=== PATIENT | female | born 1990 | race Caucasian/White ===

== ENCOUNTER → 2020-09-02 09:49 | Outpatient (CLI) | payer OTHER, SELFPAY ==
--- NOTE | ~2020-09-02 | US_ITS ---
EXAMINATION: US OB follow up EXAM DATE: 09/02/2020 10:29 INDICATION: Placenta previa, f/u anatomy . 2nd trimester. TECHNIQUE: Pelvic obstetrical transabdominal sonogram was performed by a technologist. There are mu ltiple grayscale and Doppler images available for interpretation. Correlation is made to outside imag ing ultrasound 08/02/2020. FINDINGS: There is a single fetus identified in breech presentation with a heart rate of 135 beats pe r minute. The placenta is located in the posterior position. There is no sonographic evidence of ret roplacental hemorrhage identified. There is subjectively expected amount of amniotic fluid. Placenta l margin to internal cervical os distance is 1.0 cm. BIOMETRIC DATA: Biparietal diameter (BPD): 6.0cm ----------------> 24 weeks 3 days. Head circumference (HC): 22.0 cm ----------------> 24 weeks 0 days. Abdominal circumference (AC): 19.4 cm ----------> 24 weeks 1 day. Femur length (FL): 4.7 cm --------------------------> 25 weeks 6 days. These measurements are concordant. HC/AC ratio is 1.13 (The 5th -- 95th percentile range is 1.04-1.22. Estimated weight is 733 g +/- 110 g. This is the 57th percentile when the currently reported c linical gestation age 24 weeks 3 days, clinical estimated date of delivery (KENNETH-OPE) 12/20 is used. Fe atul estimated gestational age based on measurements from this exam is 24 weeks 4 days, with an estima shereen date of delivery (KENNETH-AUA) 12/19. ANATOMIC SURVEY: The following anatomy is identified and is sonographically normal in appearance: Cerebral ventricles Cerebellum Cisterna magna CTL-spine Four-chamber heart Diaphragm Stomach Kidneys Bladder Three-vessel cord Cord insertion IMPRESSION: 1. Single fetus in breech presentation with heart rate 135 beats per minute. 2. Estimated weight of 733 grams, 57th percentile using the currently reported clinical gestat ion age of 24 weeks 3 days, KENNETH(OPE) 12/20. 3. Normal anatomic survey. 4. Low-lying placenta. Reviewed, dictated and finalized at location A. IMPRESSION: 1. Single fetus in breech presentation with heart rate 135 beats per minute. 2. Estimated weight of 733 grams, 57th percentile using the currently re ported clinical gestation age of 24 weeks 3 days, KENNETH(OPE) 12/20. 3. Normal anatomic survey. 4. Low-lying placenta.
== END ==
PROVIDERS: Visit Provider Obstetrics & Gynecology Gynecology
DX: Z36.2 Encounter for other antenatal screening follow-up (principal); O44.42 Low lying placenta NOS or without hemorrhage, second trimester; Z3A.24 24 weeks gestation of pregnancy
CPT/HCPCS: 76816

== ENCOUNTER 2020-10-25 09:09 | Emergency (ER) | payer OTHER, MEDICAID, SELFPAY ==
[2020-10-25] VITALS (17 sets, daily range): BP systolic 112–127; BP diastolic 72–90; PULSE 88–115; RESP 12–21; TEMP 36.6; O2SAT 94–99
--- NOTE | 2020-10-25 09:13 | ECG_ITS ---
Measurements Intervals [place] Rate: 104 P: 14 SC: 126 QRS: 26 QRSD: 84 T: 19 QT: 352 QTc: 464 Interpretive Statements SINUS TACHYCARDIA VENTRICULAR BIGEMINY AND VENTRICULAR PREMATURE COMPLEX LOW QRS VOLTAGE IN PRECORDIAL LEADS BORDERLINE T WAVE ABNORMALITY- ANT/INF LEADS BASELINE ARTIFACT- I, II, III ABNORMAL ECG Electronically Signed On 10-25-2020 10:02:41 [employer] by Wilberto Schmitz D.O.
--- NOTE | 2020-10-25 09:28 | ED.GENADULT ---
HPI - General Adult General Chief complaint: Arrhythmia/Palpitations Stated complaint: rapid heart rate Time Seen by Provider: 10/25/20 09:16 Source: patient Mode of arrival: ambulatory Limitations: no limitations History of Present Illness HPI narrative: Patient that is 32 weeks presents with chief complaint of feeling as if her heart is racing beginning yesterday at approximately 6 PM and lasted for 4 hours. Patient states she sat down and was told to call the after-hours hotline of her [employer] Dr. Shoemaker but did not receive a call back. She states the nurse on the phone to her her to drink water and rest. She reports that when she woke up this morning she began feeling her heart racing again. She reports feelings of mild nausea but denies shortness of breath, pain with inspiration, chest pain, vomiting, tightening of her abdomen or pain in her back, vaginal bleeding or vaginal discharge. Patient states she has still been feeling the fetus moving in her abdomen normally. Patient states that she called her [employer] OPERATOR's office this morning and was told to present to the emergency department. Patient states at this time she does not feel as if her heart is racing as fast as it have been. Patient states that she took her pulse last night and it did get as high as 140. Patient denies caffeine use or any other stimulant use. She denies smoking, drinking alcohol or using any recreational drugs. Patient states aside from her daily iron supplement and vitamin D supplements she does not take any other medications. Her only chronic medical disease is rheumatoid arthritis but she states she has been in remission for 2 years. Related Data Home Medications Medication Instructions Recorded Confirmed One-A-Day Women[facility] 1 10/25/20 Allergies Allergy/AdvReac Type Severity Reaction Status Date / Time No Known Allergies Allergy Verified 10/25/20 09:19 Review of Systems Review of Systems: Narrative: CONSTITUTIONAL: Denies fever, chills, or sweats. EYES: Denies visual changes, redness, or discharge. ENT: Denies rhinorrhea, congestion, sore throat, or otalgia. CARDIOVASCULAR: Reports tachycardia denies chest pain, palpitations, or edema. RESPIRATORY: Denies cough or dyspnea. GASTROINTESTINAL: Denies abdominal pain, nausea, vomiting, or diarrhea. GENITOURINARY: Denies dysuria or hematuria. SKIN: Denies rash or itching. MUSCULOSKELETAL: Denies back pain, joint pain, or myalgia. NEUROLOGIC: Denies headache, numbness, dizziness, or weakness. PSYCHIATRIC: Denies anxiety or depression. PMFSH Social History Social History Gender identity (if verbalized by the patient): Female Exam Narrative: Exam Narrative: GENERAL: Well-appearing, well-nourished, and in no acute distress. HEAD: Normocephalic, atraumatic. EYES: PERRLA and EOMI. NECK: Supple. No adenopathy or masses. CHEST: Clear to auscultation. No respiratory distress. No wheezes rales or rhonchi HEART: Tachycardic rate and regular rhythm. No murmur heard. Normal peripheral pulses. ABDOMEN: Soft, nontender, gravid abdomen, heart tones fluctuate between 138-152, normal active bowel sounds. EXTREMITIES: Normal range of motion. No edema. SKIN: Warm, dry, no rash. NEURO: No focal deficits. Alert and oriented x3. PSYCH: Normal mood and affect. Course Vital Signs Vital signs: Vital Signs Temperature 97.8 F 10/25/20 09:20 Pulse Rate 112 H 10/25/20 09:20 Respiratory Rate 17 10/25/20 09:20 Blood Pressure 127/79 10/25/20 09:20 Pulse Oximetry 97 10/25/20 09:20 Temperature 97.8 F 10/25/20 09:20 Pulse Rate 95 10/25/20 12:46 Respiratory Rate 16 10/25/20 12:46 Blood Pressure 117/77 10/25/20 12:46 Pulse Oximetry 96 10/25/20 12:46 Medical Decision Making MDM Narrative Medical decision making narrative: Consult with Dr. Aniket Vergara who is on-call for patient's [employer] Dr. Shoemaker. She states the patient can be discharged h
[2020-10-25 09:52] LABS: Basophils Percent Auto 0.2 % (0.2-1.2); Eosinophils Absolute Auto 0.1 K/mm3 (0-0.3); Eosinophils Percent Auto 0.6 % (0-4.4); Hematocrit 37.8 % (37.0-47.0); Immature Granulocyte Absolute 0.06 K/mm3 (0.00-0.031); Immature Granulocyte Percent A 0.6 % (0-0.5); Lymphocytes Percent Auto 16.7 % (18.3-44.2); Mean Corpuscular HGB Conc 34.4 g/dl (32-36); Mean Corpuscular Hemoglobin 32.4 pg (26-34); Mean Corpuscular Volume 94.3 fl (80-100); Monocytes Absolute Auto 0.6 K/mm3 (0.1-0.6); Monocytes Percent Auto 5.8 % (2.6-8.5); Neutrophils Absolute Auto 7.7 K/mm3 (1.3-6.7); Neutrophils Percent Auto 76.1 % (45.5-73.1); Platelet Count Result 235 k/mm3 (150-375); Red Blood Count 4.01 M/mm3 (4.2-5.4); Red Cell Distribution Width 12.7 % (11.5-14.5); White Blood Count 10.2 K/mm3 (4.5-10.0)
[2020-10-25 09:53] LABS: Add Urine Microscopic? NO; Appearance Urine Clear (Clear); Bilirubin Urine Negative (Negative); Blood Urine Negative (Negative); Color Urine Yellow (Yellow); Glucose Urine UA Negative (Negative); Ketones Urine Negative (Negative); Leukocyte Esterase Ur Negative LEU/UL (Negative); Nitrate Urine Negative (Negative); Protein Urine Negative (Negative); Specific Grav Ur 1.013 (1.001-1.035); Urobilinogen Urine Negative mg/dL (<2.0)
[2020-10-25 10:01] LABS: Alanine Aminotransferase 13 U/L (4-35); Albumin Level 4.1 g/dL (3.5-5.1); Alkaline Phosphatase 62 U/L (38-126); Anion Gap 9 mmol/L (8-16); Aspartate Amino Transferase 24 U/L (14-36); Bilirubin,Total 0.7 mg/dL (0.2-1.3); Blood Urea Nitrogen 7 mg/dL (7-17); Calcium 9.2 mg/dL (8.4-10.2); Carbon Dioxide 25 mmol/L (22-30); Chloride 103 mmol/L (98-107); Estimated CRCL calculation 147 ml/min; Estimated Glomerular Filt Rate > 60; Glucose 93 mg/dL (65-105); Potassium 3.9 mmol/L (3.4-5.0); Sodium 137 mmol/L (137-145)
[2020-10-25 10:02] LABS: INR 0.9; Prothrombin Time 12.7 Seconds (11.1-14.7)
[2020-10-25 10:03] LABS: Partial Thromboplastin Time 27.5 SECONDS (22.3-36.8)
[2020-10-25 10:07] LABS: Amphetamine Screen Urine Negative (Negative); Barbiturate Screen Urine Negative (Negative); Benzodiazepines Screen Urine Negative (Negative); Cannabinoid Screen Urine Negative (Negative); Cocaine Screen Urine Negative (Negative); Methadone Screen Urine Negative (Negative); Opiate Screen Urine Negative (Negative); Phencyclidine Screen Urine Negative (Negative)
[2020-10-25 10:12] LABS: Troponin I < 0.012 ng/mL (0.000-0.034)
[2020-10-25] MEDS: ONDANSETRON INJ 4 MG/2 ML VIAL IV PUSH (10:35)
[2020-10-25 11:48] LABS: Free T4 Free Thyroxine 0.71 ng/mL (0.78-2.19)
[2020-10-25 12:07] LABS: Thyroid Stimulating Hormone 0.888 uIU/mL (0.465-4.680)
== END 2020-10-25 13:10 | disposition home or self-care (01) ==
PROVIDERS: Physician Assistant; Emergency Provider Emergency Medicine
DX: O99.891 Other specified diseases and conditions complicating pregnancy (principal); R00.0 Tachycardia, unspecified; Z3A.32 32 weeks gestation of pregnancy
CPT/HCPCS: 36415; 80053; 80307; 81003; 84439; 84443; 84484; 85025; 85610; 85730; 93005; 96374; 99284; J2405

== ENCOUNTER 2020-12-13 11:19 | Outpatient (CLI) | payer OTHER, MEDICAID, SELFPAY ==
[2020-12-13 11:48] LABS: Hematocrit 33.8 % (37.0-47.0); Hemoglobin 11.7 g/dL (12.0-15.0); Mean Corpuscular HGB Conc 34.6 g/dl (32-36); Mean Corpuscular Hemoglobin 32.5 pg (26-34); Mean Corpuscular Volume 93.9 fl (80-100); Mean Platelet Volume 10.3 fl (7.4-10.4); Platelet Count Result 212 k/mm3 (150-375); Red Cell Distribution Width 12.5 % (11.5-14.5); White Blood Count 9.3 K/mm3 (4.5-10.0)
[2020-12-14 10:09] LABS: Rapid Plasma Reagin Non-Reactive (NonReactive)
== END 2020-12-13 11:20 | disposition home or self-care (01) ==
PROVIDERS: PCP Family Medicine; Visit Provider Obstetrics & Gynecology Gynecology
DX: Z01.818 Encounter for other preprocedural examination (principal)
CPT/HCPCS: 36415; 85027; 86592; 86850; 86900; 86901

== ENCOUNTER 2020-12-14 05:15 | Inpatient (IN) | payer OTHER, MEDICAID, SELFPAY ==
--- NOTE | 2020-11-13 14:01 | PC.NURSE ---
VERIFIED WITH OR SCHEDULE AND PATIENT--C/S ON 12/14/20 AT 0730 PATIENT GIVEN REQUISITION FOR LAB DRAW ON 12/13/20
[2020-12-14] VITALS (68 sets, daily range): BP systolic 81–111; BP diastolic 50–87; PULSE 64–149; RESP 12–20; TEMP 36.2–37.4; O2SAT 97–100; BMI 37.8
[2020-12-14] MEDS: LACTATED RINGERS 1,000 ML 125 ML IV CONT ×3 (05:57→08:18)
--- NOTE | 2020-12-14 06:28 | LDADM ---
This patient, Dougie Johnson, was admitted to Labor/Delivery/Recovery 120 on 12/14/20 at 05:15. Plans for labor, pain management and were discussed with patient. Patient/family oriented to hospital policies and general routines including ID bracelet, bed and alarms, visiting hours, pain management, procedures, bathroom and other care routines, personal items, smoking policy, room service/diet and guest tray routines, security routines, and visiting hours. Patient/Family are encouraged to report perceived risks to care and to ask questions if they do not understand what they are told or what they should do. See OBIX for further documentation.
--- NOTE | 2020-12-14 07:05 | WPDANESEPPF ---
Anes - Initial Pre Proc Eval Procedure: Operation Date: 12/14/20 07:30 Proposed Procedures p Repeat Section - Joanna Shoemaker MD Date/Time: 12/14/20 07:05 Surgeon: Joanna Shoemaker MD Pre Op Diagnosis: C/Section Patient Data Age: 30 Gender: F Height: 1.63 m Weight: 100 kg Last Vital Signs Pulse 97 12/14/20 06:36 BP 104/69 12/14/20 06:36 Allergies Allergy/AdvReac Type Severity Reaction Status Date / Time SURGICAL SCRUB Allergy Rash Uncoded 11/13/20 13:36 Home Medications Medication Instructions Recorded Confirmed Type Iron (ferrous sulfate) 18 mg PO DAILY 11/13/20 12/14/20 History ergocalciferol (vitamin D2) 1,250 mcg PO WEEKLY 11/13/20 12/14/20 History [Vitamin D2] ondansetron HCl [Zofran] 4 mg PO Q6H PRN 11/13/20 12/14/20 History [id number] fumarate-FA 1 tablet PO DAILY 12/14/20 12/14/20 History [] Patient hx anesthesia problems: none Family hx anesthesia problems: none PMFSH Past Medical History Medical History (Updated 12/14/20 @ 07:06 by Ashok De Leon MD) Chronic GERD Rheumatoid arthritis Family History Family History (Updated 11/13/20 @ 13:44 by Breanne Dunn RN) Sibling Anomaly of chromosome pair 22 Acute rheumatoid arthritis Father Hypertension Social History Social History Smoking status: Never smoker Substance use: never Gender identity (if verbalized by the patient): Female Spiritual care concerns: No Anes - Eval Final PreProcedure Day of Procedure 12/14/20 07:05 Patient weight: overweight Heart: regular rate and rhythm Lungs: clear to auscultation and normal air movement Airway: Mallampati scale class II Neurological: alert and oriented Last oral intake: >/= 8 hours ASA classification: II Emergent: no Anesthetic plan: proceed Anesthesia type and monitoring: regional spinal Informed Consent: The patient's anesthetic plan and its attendant risks and benefits were discussed with the patient/family/POA. Questions were solicited and answers provided to the satisfaction of the patient/family/POA.
--- NOTE | 2020-12-14 07:14 | WPDHPUPDATE1 ---
History and Physical Update Update Date/Time: 12/14/20 07:14 History and Physical has been reviewed, including an updated exam of the patient. There are NO changes in the patient's condition. Risks, benefits, and alternatives have been discussed and questions answered. Patient agrees to proceed with procedure.
--- NOTE | 2020-12-14 07:14 | PM.IMHP ---
H&P: HPI History of Present Illness Date/Time: 12/14/20 07:14 Chief Complaint: planned csection Narrative: Dougie Johnson is a 30 year old female at 39 wks her for repeat csection. During patient with tachycardia and bigeminy. Had holter monitor and ECHO that were otherwise normal. No meds needed. Following with cardiology. Patient also with recent knuckle fracture and required surgical repair. [facility] Past Medical History Medical History (Updated 12/14/20 @ 07:18 by Joanna Shoemaker MD) Chronic GERD Rheumatoid arthritis Surgical History Surgical History (Updated 12/14/20 @ 07:18 by Joanna Shoemaker MD) S/P S/P laparoscopic cholecystectomy S/P ventral herniorrhaphy Family History Family History (Updated 11/13/20 @ 13:44 by Breanne Dunn RN) Sibling Anomaly of chromosome pair 22 Acute rheumatoid arthritis Father Hypertension Social History Social History Smoking status: Never smoker Substance use: never Gender identity (if verbalized by the patient): Female Spiritual care concerns: No Meds Home Medications and Allergies Home Medications Medication Instructions Recorded Confirmed Type Iron (ferrous sulfate) 18 mg PO DAILY 11/13/20 12/14/20 History ergocalciferol (vitamin D2) 1,250 mcg PO WEEKLY 11/13/20 12/14/20 History [Vitamin D2] ondansetron HCl [Zofran] 4 mg PO Q6H PRN 11/13/20 12/14/20 History [id number] fumarate-FA 1 tablet PO DAILY 12/14/20 12/14/20 History [] Allergies Allergy/AdvReac Type Severity Reaction Status Date / Time SURGICAL SCRUB Allergy Rash Uncoded 11/13/20 13:36 Vital Signs Vital Signs - 24 hr 12/14/20 06:36 Pulse Rate 97 Blood Pressure 104/69 Exam Const: General: healthy appearing and alert Orientation/consciousness: patient oriented x3 Resp: Effort & Inspection: normal respiratory effort Auscultation: clear to auscultation bilaterally Cardio: Rate: regular rate Rhythm: regular rhythm GI: GI Palp: Yes Soft to palpation, No Tenderness to palpation present (GI), No Palpable mass present and Yes Other GI palpation findings present (gravid with fundal height 40) : External Female Exam: normal external appearance Speculum Exam - Vagina: normal appearance of the vagina and normal vaginal discharge Speculum Exam - Cervix: normal appearance of the cervix Bimanual exam- vagina & uterus: uterine size normal and consistency normal Bimanual Exam- Adnexa, other: normal adnexae and No adnexal tenderness Neuro: General: patient oriented x3 Assessment and Plan Assessment and plan (1) History of section, low transverse: Code(s): Z98.891 - History of uterine scar from previous surgery Status: Acute Assessment and Plan: declines trial of labor and plan to proceed with repeat csection (2) 39 weeks gestation of : Code(s): Z3A.39 - 39 weeks gestation of Status: Acute
[2020-12-14] MEDS: ceFAZolin 2 GM/D5W 50 ML 2 GM/50 ML BAG IVPB (07:19)
--- NOTE | 2020-12-14 08:16 | P.OP_ITS ---
Procedure Note - Detailed Date of procedure: 12/14/20 Pre-op diagnosis: C/Section IUP 39 wks Previous csection Post-op diagnosis: same Procedure performed: repeat LTCS Description of procedure: The patient was taken to the operating room and placed under spinal anesthesia in the dorsal supine position with a leftward tilt. She was prepped and draped in the usual sterile fashion. Once anesthesia was deemed adequate, a Pfannenstiel skin incision was made through the prior incision. The incision was carried down to the fascia which was nicked in the midline. Incision was extended laterally using Cancino scissors. Bovie cautery was used to obtain hemostasis in the subcutaneous tissues. The [facility] used to tent the fascia which was then dissected off anteriorly and posteriorly with sharp and blunt dissection. The peritoneum was entered during this process. The peritoneal incision is extended with blunt traction. The bladder blade is placed. The vesicouterine peritoneum was grasped with a Peon and entered with Metzenbaum. The incision is extended laterally. Bladder flap was created digitally. The lower uterine segment is incised in a transverse fashion with the scalpel. The incision is extended laterally using blunt traction. Membranes are ruptured and clear amniotic fluid is noted. The infant's head was brought up into the incision and delivered as the regulatory assistant applied fundal pressure. The infant was fully delivered the cord is detained gold and clamped and cut. The infant is handed to the waiting nursery nurse. The uterus is exteriorized, cleared of all clots and debris, and the edges are grasp anteriorly and posteriorly with ring forceps. The distal edge of the incision is noted to have very thin myometrium. The incision is closed using 0 Monocryl in a running locked fashion same suture was used for imbrication and 2 additional sutures were required for hemostasis. The cul-de-sac is irrigated, the uterus is returned to the abdomen, and the gutters are irrigated. The ct erine incision is again inspected. It is noted to be hemostatic. The fascia was closed using 0 Vicryl in a running fashion. Subcutaneous tissues are irrigated and noted to be hemostatic. Skin incision is closed with 4 O Vicryl in a subcuticular fashion. Dermaflex was placed over the incision. Sponge, instrument, and needle counts are correct per the OR staff. Anesthesia: spinal Surgeon: Joanna Shoemaker MD Estimated blood loss (mL): 480 Drains: Yes (le) Packing: No Pathology: none sent Complications: No immediate complications Condition: stable Disposition: floor Findings: female infant with 9/10 ; weight 7#5oz; nuchal cord x 1 delivered through; normal appearing tubes, ovaries, and uterus; adhesions from omentum to left mid fundus
--- NOTE | 2020-12-14 08:23 | PM.OBDSVD ---
DS: Admitting Diagnosis Admitting Diagnosis Admitting Diagnosis: IUP 39 wks Previous csection DS: Discharge Diagnosis Discharge Diagnosis (1) History of section, low transverse: Code(s): Z98.891 - History of uterine scar from previous surgery Status: Acute (2) 39 weeks gestation of : Code(s): Z3A.39 - 39 weeks gestation of Status: Acute OB - DS: Summary OB Procedures : Ultrasound OB Procedures Intrapartum: low cervical, transverse OB Procedures: : None Peripartum Data Delivery Method: Section Procedures: Procedures Operation Date: 12/14/20 07:30 <No data on this case meets the specified criteria> complications: none Status at Discharge Functional status at discharge: independent ambulation Overall status at discharge: patient is progressing back to baseline Time Spent with Patient Time attestation: Total time spent providing and/or coordinating discharge services: Discharge Plan Discharge Attending physician on discharge: Joanna Shoemaker Discharging Clinician: Aniket Vergara Anticipated Discharge Date/Time: 12/17/20 08:24 Patient Disposition: Home, Self-Care Activity: may shower, may drive after 2 weeks and pelvic rest Diet: regular Wound Care Instructions: incision open to air Discharge Instructions: Education: Mom and Baby Guide Given to: Mother Follow-Up: Call your delivering provider's office for an appointment to be seen in: 1 Week then 4-6 weeks for exam Mom and baby should come to the [facility] for the follow-up appointment. Appointment Date/Time: Friday, December 18, 2020 at 10:00 am What to expect at your follow-up visit: Blood Pressure Check Physical Assessment Call [phone] if you are unable to keep your appointment time. BREAST CARE: * Wear a snug supportive bra. * For engorgement discomfort: Breast Feeding: * Apply warm moist washcloths * Express milk as needed to relieve engorgement * Wear loose clothing * For sore nipples: * Identify correct latch-on * Apply warm moist washcloths before and after nursing * Air dry nipples after nursing * May apply Lansinoh cream to nipples ABDOMINAL INCISION: (if applicable) * Allow incision to air dry * Do NOT use lotions for powders on your incision * When showering, allow soap and water to run over the incision, but do not wash incision EPISIOTOMY/PERINEAL CARE: * Until bleeding stops, use your elbert bottle after urinating * Change your pad frequently throughout the day * No tub baths until seen by your physician - You may shower ACTIVITY: * Rest as much as possible. * Do not exercise or lift anything heavier than your baby (such as laundry or other children.) * Avoid stairs or driving as much as possible. * Do not put anything into the vagina. No douching, tampons, or sexual activity until seen by physician. NOTIFY PHYSICIAN IF YOU HAVE ANY QUESTIONS OR IF ANY OF THE FOLLOWING SYMPTOMS OCCUR: * If your incision becomes red, swollen, or more painful than what you have experienced in the hospital. * If your vaginal bleeding becomes foul smelling. * If your vaginal bleeding becomes more heavy than a period or if your bleeding changes from pink to bright red. However, you may pass an occasional walnut-sized clot once or twice for the first week . * If you experience a sharp, shooting pain in your calves. * If you discover a hard, reddened area on your breast or if you experience flu-like symptoms. DIET: * Eat regular, well-balanced meals. * Drink plenty of fluids daily. If , drink to thirst. Patient Instructions: (DC) Stand Alone Forms: General Discharge Information Follow-up/Referrals: Joanna Shoemaker MD [Physician] - 1 Week Discha
[2020-12-14] MEDS: OXYTOCIN 30 UNITS/NS 500 ML 30 UNITS/500 ML BAG 125 UNITS IV CONT (09:50)
[2020-12-14] MEDS: diphenhydrAMINE HCl INJ 50 MG/ML VIAL 12.5 MG IV PUSH (09:51)
--- NOTE | 2020-12-14 10:32 | PC.NURSE ---
Patient transferred to post room #283 via stretcher. Support person present. Oriented to unit, room, information board, rooming in, admission packet and security measures. Patient verbalizes understanding.
[2020-12-14] MEDS: DEXTROSE 5%/0.45% SOD CHL 1,000 ML 125 ML IV CONT (13:56)
[2020-12-14] MEDS: DOCUSATE SODIUM 100 MG CAPSULE PO (13:57)
[2020-12-14] MEDS: LANOLIN (LANSINOH) 7.5 GM CREAM 1 APPLIC TOPICAL (13:57)
--- NOTE | 2020-12-14 14:21 | PC.NURSE ---
1123 Breast feeding note; nurse at bedside to assist. Mother using a nipple shield, stating she had to with her first baby as well, and nursed with shield for 2-3 months. She reports a delay of breast feeding her first baby for about 24h, and then did have to supplement her breast feedings. Today, Mother shown how to correctly place nipple shield over her nipple. Several attempts required, but baby able to open her mouth to latch to feed. She demonstrated rhythmic sucking with maintained latch requiring a little stimulation to nurse more vigorously. Mother reported comfortable breast feeding. Mother had visible colostrum the nipple shield. Baby nursed eagerly, 20 minutes, then did additional 10 minutes on mother's R side in football position. Because mother's L hand is bandadged, football position seems to be a little easier for her. Pt's mother is present and helpful with feedings and baby care. Because of mother's hx of lower milk production, and use of nipple shield that will probably continue, pt will be set up with a breast pump to start some pumping later this evening. She is is agreement with this plan, and desires to make a good effort to breast feed this baby. Reviewed use of feeding log to monitor feedings, and output. Pt and her mother very attentive and voiced understanding of all information shared.
--- NOTE | 2020-12-14 15:11 | PC.NURSE ---
1445 Breast feeding note; mother set up with breast pump; reviewed set-up, Initiation cycle, and care of equipment. 24mm flanges used. Mother will breast feed and pump 15 minutes. Pt attentive and voiced understanding.
[2020-12-14] MEDS: IBUPROFEN 600 MG TABLET PO (19:40)
[2020-12-15] VITALS: BP 101/61; PULSE 88; RESP 18; TEMP 36.8; O2SAT 99
[2020-12-15] MEDS: ACETAMINOPHEN 325 MG TABLET 650 MG PO (03:16)
[2020-12-15 04:00] VITALS: BP 100/60; PULSE 95; RESP 18; TEMP 36.9; O2SAT 98
[2020-12-15 04:39] LABS: Basophils Percent Auto 0.2 % (0.2-1.2); Eosinophils Absolute Auto 0.1 K/mm3 (0-0.3); Eosinophils Percent Auto 0.8 % (0-4.4); Hematocrit 28.7 % (37.0-47.0); Hemoglobin 9.8 g/dL (12.0-15.0); Immature Granulocyte Absolute 0.03 K/mm3 (0.00-0.031); Immature Granulocyte Percent A 0.3 % (0-0.5); Mean Corpuscular HGB Conc 34.1 g/dl (32-36); Mean Corpuscular Hemoglobin 31.8 pg (26-34); Mean Corpuscular Volume 93.2 fl (80-100); Mean Platelet Volume 10.6 fl (7.4-10.4); Monocytes Percent Auto 9.2 % (2.6-8.5); Neutrophils Absolute Auto 8.1 K/mm3 (1.3-6.7); Neutrophils Percent Auto 72.5 % (45.5-73.1); Platelet Count Result 176 k/mm3 (150-375); Red Blood Count 3.08 M/mm3 (4.2-5.4); Red Cell Distribution Width 12.6 % (11.5-14.5); White Blood Count 11.2 K/mm3 (4.5-10.0)
[2020-12-15] MEDS: POLYSACCHARIDE IRON COMPLEX 150 MG CAPSULE PO ×2 (07:45→17:30)
[2020-12-15] MEDS: MULTIVIT/MIN/PREN/FOL AC/IRON TABLET 1 TAB PO (07:46)
[2020-12-15] MEDS: DOCUSATE SODIUM 100 MG CAPSULE PO ×2 (07:46→17:30)
[2020-12-15] MEDS: IBUPROFEN 600 MG TABLET PO ×3 (07:46→19:23)
[2020-12-15 08:15] VITALS: BP 95/61; PULSE 92; RESP 18; TEMP 36.9; O2SAT 98
[2020-12-15] MEDS: HYDROcodone/acetaminophen (*CRX) 5-325 MG TABLET 1 TAB PO ×4 (09:25→22:40)
--- NOTE | 2020-12-15 11:44 | WPDANLDPN2 ---
Anes-Prog Note L&D Date/Time: 12/15/20 11:44 Comfortable throughout: section Neuraxial method: spinal Epidural/Spinal procedure site: clean & non-tender Neuro status: Neuro function grossly intact. Cardiovascular status: normal Respiratory status: normal Airway patency: baseline Mental status: baseline Post-Op hydration status: normal Vital Signs: Last Vital Signs Temp 36.9 C 12/15/20 08:15 Pulse 92 12/15/20 08:15 Resp 18 12/15/20 08:15 BP 95/61 L 12/15/20 08:15 Pulse Ox 98 12/15/20 08:15 Pain score (VAS): 0/10. Patient resting in bed at time of assessment, appears comfortable. Support person at bedside. I/O: Intake & Output 12/14/20 12/15/20 12/15/20 23:59 07:59 15:59 Intake Total 1000 800 Output Total 500 2650 Balance 500 -1850 Post-procedural complaints: none Patient feedback: Patient satisfied with anesthetic care.
--- NOTE | 2020-12-15 11:45 | WPDANLDNPN2 ---
Anes-Prog Note L&D-Neuraxial Date/Time: 12/15/20 11:45 Neuraxial medications: intrathecal PF morphine Opiod-related complaints: none Patient feedback: Patient satisfied with post-operative pain management.
--- NOTE | 2020-12-15 14:34 | PM.OBPNVD ---
OB - PN: Subj Subjective Date/time seen: 12/15/20 14:34 doing okay no complaints. minimal hand pain some cramping and incision pain OB - PN: Obj Data Labs CBC & Chem 7: 12/15/20 03:31 Labs: Laboratory Results - last 24 hr 12/15/20 03:31 WBC 11.2 H RBC 3.08 L Hgb 9.8 L Hct 28.7 L MCV 93.2 MCH 31.8 MCHC 34.1 RDW 12.6 Plt Count 176 MPV 10.6 H Immature Gran % (Auto) 0.3 Neut % (Auto) 72.5 Lymph % (Auto) 17.0 L [place] % (Auto) 9.2 H Eos % (Auto) 0.8 Baso % (Auto) 0.2 Lymph # (Auto) 1.90 [place] # (Auto) 1.0 H Eos # (Auto) 0.1 Baso # (Auto) 0.0 Abs Immat Gran (auto) 0.03 Absolute Neuts (auto) 8.1 H Absolute Nucleated RBC 0.0 Nucleated RBC % 0.0 OB - PN A/P Assessment and Plan (1) History of section, low transverse: Code(s): Z98.891 - History of uterine scar from previous surgery Status: Acute Assessment and Plan: continue with pp care. plan d/c in am. Time Spent With Patient Time: Total time spent is greater than 50% in coordination of care (as documented) at patient's floor/unit and/or counseling patient: Exam GI: Other: incision: C/D/I
--- NOTE | 2020-12-15 14:43 | PC.NURSE ---
1230 Breast feeding note; mother asked for assistance to try to get infant to latch to breast for feeding instead of using the nipple shield. Nurse present. baby awake and hungry; football position used. Baby made good effort; numerous attempt made, but baby unable to get her to latch and maintain latch for feeding; baby became easily frustrated. Nipple shield place and baby latched and demonstrated rhythmic sucking. Baby is exclusively breast feeding. mother reports seeing colostrum in shield; mother continues regular pumping after each feeding; Mother has a Lansinoh pump which nurse helped her set up. Mother will continue q2-3h feedings, and regular pumping. Planning discharge tomorrow. Mother has mother baby guide for home reference, and contact information. Baby is voiding and stooling, weight and Jaundice WNL. Mother seems comfortable and confident nursing her baby.
[2020-12-15 19:20] VITALS: BP 99/65; PULSE 76; RESP 18; TEMP 36.2; O2SAT 100
--- NOTE | 2020-12-15 19:20 | PC.NURSE ---
Patient to view the discharge video [facility], The First Two Weeks online. Patient was given the opportunity and encouraged to ask questions. Patient verbalized understanding of information shared and has been given the mother/baby guide for home reference.
[2020-12-16] MEDS: IBUPROFEN 600 MG TABLET PO ×2 (04:24→12:21)
[2020-12-16] MEDS: HYDROcodone/acetaminophen (*CRX) 5-325 MG TABLET 1 TAB PO ×2 (04:25→12:22)
[2020-12-16] MEDS: HYDROcodone/acetaminophen (*CRX) 10-325 MG TABLET 1 TAB PO (08:31)
[2020-12-16] MEDS: MULTIVIT/MIN/PREN/FOL AC/IRON TABLET 1 TAB PO (08:31)
[2020-12-16] MEDS: POLYSACCHARIDE IRON COMPLEX 150 MG CAPSULE PO (08:31)
[2020-12-16] MEDS: DOCUSATE SODIUM 100 MG CAPSULE PO (08:31)
[2020-12-16 09:25] VITALS: BP 100/60; PULSE 103; RESP 18; TEMP 36.8; O2SAT 97
[2020-12-16] MEDS: SIMETHICONE 80 MG TAB.CHEW PO (12:22)
[2020-12-18 10:35] VITALS: BP 123/77; PULSE 95; RESP 20; TEMP 36.7; O2SAT 99
== END 2020-12-16 15:05 | disposition home or self-care (01) | DRG 788 ==
LOC: ANHLDR 08:25 → ANHOB2 12-16 11:31 → ANHLDR 12-19 10:40 → ANHOB2 12-19 10:40
PROVIDERS: Admitting Provider Obstetrics & Gynecology Gynecology; PCP Family Medicine; Visit Provider Obstetrics & Gynecology
PROC: 10D00Z1 Extraction of Products of Conception, Low, Open Approach (ICD-10-PCS; CPT 59514; principal; 2020-12-14 07:30)
DX: O34.211 Maternal care for low transverse scar from previous cesarean delivery (principal); O69.81X0 Labor and delivery complicated by cord around neck, without compression, not applicable or unspecified; O99.824 Streptococcus B carrier state complicating childbirth; Z3A.39 39 weeks gestation of pregnancy; Z37.0 Single live birth; N32.89 Other specified disorders of bladder
CPT/HCPCS: 36415; 85025; 85027; 86592; 86850; 86900; 86901; A9270; J0131; J0690; J1200; J2274; J2405; J2590; J7120

== ENCOUNTER 2021-12-30 11:05 | Emergency (ER) | payer BC, MEDICAID, SELFPAY ==
--- NOTE | ~2021-12-30 | CT_ITS ---
EXAMINATION: CT abdomen pelvis w con DATE: 12/30/2021 12:35 INDICATION: Right-sided abdominal pain TECHNIQUE: Computed tomography (CT) of the abdomen and pelvis was performed with 100 cc Omnipaque 350 intravenous contrast. The dose-length product was 604.78 mGy-cm. Automated exposure control and iter ative reconstruction technique were employed. COMPARISON: None. FINDINGS: Lung bases are unremarkable. Heart size is normal. No significant pleural or pericardial ef fusion. The liver, spleen, pancreas, adrenal glands and kidneys are unremarkable. There are cholecyst ectomy clips. There is an IUD present in the uterus. Bladder is decompressed. No significant vascular abnormality. No lymphadenopathy. No acute osseous abnormality. Nonobstructive bowel gas pattern. No acute osseous abnormality. There is a fat-containing umbilical hernia. IMPRESSION: 1. No acute abdominal abnormality. Reviewed, dictated and finalized at location A. ETING BUDGET ANALYST
[2021-12-30 11:14] VITALS: BP 137/84; PULSE 140; RESP 16; TEMP 36.7; O2SAT 97
[2021-12-30 11:35] LABS: Basophils Percent Auto 0.1 % (0.2-1.2); Eosinophils Percent Auto 0.6 % (0-4.4); Hematocrit 39.8 % (37.0-47.0); Hemoglobin 13.7 g/dL (12.0-15.0); Immature Granulocyte Absolute 0.01 K/mm3 (0.00-0.031); Immature Granulocyte Percent A 0.1 % (0-0.5); Lymphocytes Absolute Auto 0.84 K/mm3 (0.9-3.2); Lymphocytes Percent Auto 11.6 % (18.3-44.2); Mean Corpuscular HGB Conc 34.4 g/dl (32-36); Mean Corpuscular Hemoglobin 31.4 pg (26-34); Mean Corpuscular Volume 91.3 fl (80-100); Mean Platelet Volume 9.3 fl (7.4-10.4); Monocytes Absolute Auto 0.4 K/mm3 (0.1-0.6); Monocytes Percent Auto 5.5 % (2.6-8.5); Neutrophils Percent Auto 82.1 % (45.5-73.1); Platelet Count Result 234 k/mm3 (150-375); Red Blood Count 4.36 M/mm3 (4.2-5.4); Red Cell Distribution Width 12.5 % (11.5-14.5); White Blood Count 7.3 K/mm3 (4.5-10.0)
[2021-12-30 11:47] LABS: Add Urine Microscopic? YES; Alanine Aminotransferase 103 U/L (4-35); Albumin Level 4.2 g/dL (3.5-5.1); Alkaline Phosphatase 91 U/L (38-126); Anion Gap 8 mmol/L (8-16); Appearance Urine Cloudy (Clear); Aspartate Amino Transferase 78 U/L (14-36); Bacteria Urine 4+ /hpf; Bilirubin Urine Negative (Negative); Bilirubin,Total 0.8 mg/dL (0.2-1.3); Blood Urea Nitrogen 9 mg/dL (7-17); Blood Urine 2+ (Negative); Calcium 8.2 mg/dL (8.4-10.2); Carbon Dioxide 21 mmol/L (22-30); Chloride 106 mmol/L (98-107); Color Urine Amber (Yellow); Estimated CRCL calculation 126 ml/min; Estimated Glomerular Filt Rate > 60; Glucose 109 mg/dL (65-110); Glucose Urine UA Negative (Negative); Ketones Urine Negative (Negative); Leukocyte Esterase Ur 3+ LEU/UL (Negative); Lipase 41 U/L (23-300); Mucus Urine Few /lpf; Nitrate Urine Negative (Negative); Potassium 3.3 mmol/L (3.4-5.0); Protein Urine Negative (Negative); Sodium 135 mmol/L (137-145); Specific Grav Ur 1.008 (1.001-1.035); Squamous Epithelial Cell Urine Occasional /hpf (Few); WBC Urine 16-20 /hpf
--- NOTE | 2021-12-30 12:17 | ED.ABDPAIN ---
HPI - Abdominal Pain General Chief Complaint: Abdominal Pain <Purnima Steiner APRN - Last Filed: 12/30/21 18:30> Stated Complaint: abd pain <Purnima Steiner APRN - Last Filed: 12/30/21 18:30> Time Seen by Provider: 12/30/21 11:08 <Purnima Steiner APRN - Last Filed: 12/30/21 18:30> Source: patient <Purnima Steiner APRN - Last Filed: 12/30/21 18:30> Mode of arrival: ambulatory <Purnima Steiner APRN - Last Filed: 12/30/21 18:30> Limitations: no limitations <Purnima Steiner APRN - Last Filed: 12/30/21 18:30> History of Present Illness HPI narrative: 31-year-old female with history of cholecystectomy, ventral hernia repairs, and 2 C-sections presents today with complaints of right lower abdominal pain that started last night around 10 PM. Patient noted nausea that started around 2:00 in the afternoon. Patient states pain has progressively gotten worse. Patient admits to chills, nausea, vomiting, diarrhea. Patient denies fevers. Patient's last menstrual period over 4 years ago. Patient has IUD. <Purnima Steiner APRN - Last Filed: 12/30/21 18:30> Related Data Home Medications: Home Medications Medication Instructions Recorded Confirmed Iron (ferrous sulfate) 18 mg PO DAILY 11/13/20 12/14/20 ergocalciferol (vitamin D2) 1,250 mcg PO WEEKLY 11/13/20 12/14/20 [Vitamin D2] ondansetron HCl [Zofran] 4 mg PO Q6H PRN 11/13/20 12/14/20 1 tablet PO DAILY 12/14/20 12/14/20 <Purnima Steiner APRN - Last Filed: 12/30/21 18:30> Allergies/Adverse Reactions: Allergies Allergy/AdvReac Type Severity Reaction Status Date / Time SURGICAL SCRUB Allergy Rash Uncoded 11/13/20 13:36 <Purnima Steiner APRN - Last Filed: 12/30/21 18:30> Review of Systems Constitutional: Constitutional: Reports chills <Purnima Steiner APRN - Last Filed: 12/30/21 18:30> Eyes: Eyes: Reports no additional eye complaints <Purnima Steiner MARBLE INSTALLER - Last Filed: 12/30/21 18:30> ENT: Reports system reviewed and no additional complaints, except as documented <Purnima Steiner MARBLE INSTALLER - Last Filed: 12/30/21 18:30> Cardiovascular: Cardiovascular: Reports no additional cardiovascular complaints <Purnima Steiner MARBLE INSTALLER - Last Filed: 12/30/21 18:30> Respiratory: Respiratory: Reports no additional respiratory complaints <Purnima Steiner MARBLE INSTALLER - Last Filed: 12/30/21 18:30> Gastrointestinal: Gastrointestinal: Reports abdominal pain, Reports diarrhea, Reports nausea and Reports vomiting <Purnima Steiner MARBLE INSTALLER - Last Filed: 12/30/21 18:30> Genitourinary: Genitourinary: Denies hematuria, Denies nocturia, Denies dysuria, Reports flank pain (abdominal pain radiating to the flank) and Denies urinary incontinence <Purnima Steiner MARBLE INSTALLER - Last Filed: 12/30/21 18:30> Musculoskeletal: Musculoskeletal: Reports back pain <Purnima Steiner MARBLE INSTALLER - Last Filed: 12/30/21 18:30> PMFSH Past Medical History Medical History: Medical History (Updated 12/30/21 @ 14:48 by Purnima Steiner APRN) Chronic GERD Rheumatoid arthritis <Purnima Steiner MARBLE INSTALLER - Last Filed: 12/30/21 18:30> Surgical History Surgical History: Surgical History (Updated 12/14/20 @ 07:18 by Joanna Shoemaker MD) S/P S/P laparoscopic cholecystectomy S/P ventral herniorrhaphy <Purnima Steiner MARBLE INSTALLER - Last Filed: 12/30/21 18:30> Family History Family History: Family History (Updated 11/13/20 @ 13:44 by Breanne Dunn RN) Sibling Anomaly of chromosome pair 22 Acute rheumatoid arthritis Father Hypertension <Purnima Steiner MARBLE INSTALLER - Last Filed: 12/30/21 18:30> Social History Social History: Social History Smoking status: Never smoker Substance use: never Gender identity (if verbalized by the patient): Female Spiritual care concerns: No <Purnima Steiner, MARBLE INSTALLER - Last Filed: 12/30/21 18:30> Exam Const: General: cooperative, alert and acute distress (patient with severe pain to right lower quadrant)
[2021-12-30] MEDS: MORPHINE SULFATE (*CRX) 2 MG/ML INJ IV PUSH (12:36)
[2021-12-30] MEDS: ONDANSETRON INJ 4 MG/2 ML VIAL IV PUSH (12:36)
[2021-12-30] MEDS: SODIUM CHLORIDE 0.9% IV 1,000 ML 999 ML IV CONT (12:36)
[2021-12-30 13:25] VITALS: BP 102/65; PULSE 97; RESP 16
[2021-12-30] MEDS: KETOROLAC 30 MG/ML VIAL (*BKC) IV PUSH (14:51)
== END 2021-12-30 15:18 | disposition home or self-care (01) ==
PROVIDERS: Emergency Provider Nurse Practitioner Family; PCP Family Medicine
DX: N30.01 Acute cystitis with hematuria (principal); K21.9 Gastro-esophageal reflux disease without esophagitis; M06.9 Rheumatoid arthritis, unspecified; Z97.5 Presence of (intrauterine) contraceptive device
CPT/HCPCS: 36415; 74177; 80053; 81001; 81025; 83690; 85025; 87070; 87077; 87086; 87186; 87491; 87591; 87808; 96361; 96365; 96375; 99284; J0696; J1885; J2270; J2405; J7030; Q9967